=== PATIENT | female | born 1950 | race Caucasian/White ===

== ENCOUNTER 2018-09-23 00:09 | Observation (INO) | payer BC ==
[2018-09-23] MEDS ORDERED: METHYLPREDNISOLONE PF 125MG/VIAL IVP ONE (00:18)
[2018-09-23] MEDS ORDERED: LEVALBUTEROL HCL 1.25 MG/3 ML INH ONE (00:18)
[2018-09-23] MEDS ORDERED: IPRATROPIUM BR 0.02% NEB (0.5MG) INH ONE (00:19)
--- NOTE | 2018-09-23 00:24 | Emergency Department Record ---
History of Present Illness - General Chief Complaint: Shortness of breath Stated Complaint: SOB Time Seen by Provider: 09/23/18 00:18 Source: Patient Mode of Arrival: Wheelchair Limitations: No limitations - History of Present Illness Initial Comments: 68 yo female presents to ED for evaluation of difficulty in breathing symptoms for the past several days, progressively worsening. Patient reports previous diagnosis of COPD, reports non-productive cough symptoms and subjective fevers. Patient reports history of lymphedema, denies history of CHF. 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 MD Complaint: Shortness of breath -: Days(s) Severity: Moderate Consistency: Constant Improves With: Nothing Worsens With: Nothing Known History Of: COPD Context: Recent URI Associated Symptoms: Denies other symptoms Treatments Prior to Arrival: None - Related Data Home Oxygen Therapy: No Home Medications Medication Instructions Recorded Confirmed Last Taken Bumetanide 1 tab PO BID 09/23/18 09/23/18 09/23/18 Bupropion HCl [Wellbutrin Xl] 300 mg PO DAILY 09/23/18 09/23/18 09/23/18 Carvedilol 1 tab PO DAILY 09/23/18 09/23/18 09/23/18 Levothyroxine Sodium [Synthroid] 150 mcg PO DAILY 09/23/18 09/23/18 09/23/18 Rivaroxaban [Xarelto] 1 tab PO DAILY 09/23/18 09/23/18 09/23/18 Allergies Allergy/AdvReac Type Severity Reaction Status Date / Time Carbapenems Allergy Unknown RASH Verified 09/23/18 00:24 Cephalosporins Allergy Unknown RASH Verified 09/23/18 00:24 Penicillins Allergy Unknown RASH Verified 09/23/18 00:24 albuterol Allergy SWELLING Verified 09/23/18 06:28 OF THE LIPS clindamycin Allergy RASH Verified 09/23/18 00:23 (Continued): Allergy Unknown RASH Uncoded 09/23/18 00:23 Allergies: Allergy Unknown RASH Uncoded 09/23/18 00:23 Review of Systems Constitutional: Denies: Chills, Fever, Malaise, Night sweats Eyes: Denies: Eye discharge, Eye pain ENT: Denies: Congestion, Ear pain, Epistaxis Respiratory: Reports: Cough, Dyspnea Cardiovascular: Reports: Dyspnea on exertion, Edema. Denies: Chest pain, Palpitations Endocrine: Denies: Fatigue, Heat or cold intolerance Gastrointestinal: Denies: Abdominal pain, Nausea, Vomiting Genitourinary: Denies: Incontinence, Retention Musculoskeletal: Denies: Arthralgia, Back pain Skin: Denies: Bruising, Change in color Neurological: Denies: Abnormal gait, Confusion, Headache, Seizure Psychiatric: Denies: Anxiety Hematological/Lymphatic: Reports: Blood Clots, Easy bleeding, Easy bruising. Denies: Anemia Physical Exam - General General Appearance: Alert, Oriented x3, Cooperative, Moderate distress Limitations: No limitations - Head Head exam: Atraumatic, Normocephalic, Normal inspection Head exam detail: negative: Abrasion, Contusion, Randolph's sign, General tenderness, Hematoma, Laceration - Eye Eye exam: Normal appearance. negative: Conjunctival injection, Periorbital swelling, Periorbital tenderness, Scleral icterus - ENT Ear exam: negative: Auricular hematoma, Auricular trauma Nasal Exam: negative: Active bleeding, Discharge, Dried blood, Foreign body Mouth exam: negative: Drooling, Laceration, Muffled voice, Tongue elevation - Neck Neck exam: Normal inspection. negative: Meningismus, Tenderness - Respiratory Respiratory exam: Decreased breath sounds, Respiratory distress. negative: Rales, Rhonchi, Stridor - Cardiovascular Cardiovascular Exam: Regular rate, Normal rhythm, Normal heart sounds - GI/Abdominal GI/Abdominal exam: Soft. negative: Rebound, Rigid, Tenderness - Rectal Rectal exam: Deferred - exam: Deferred - Extremities Extremities exam: Pedal edema - Back Back exam: Denies: CVA tenderness (R), CVA tenderness (L) - Neurological Neurological exam: Alert, Oriented X3 - Psychiatric Psychiatric exam: Normal affect, Normal mood - Skin Skin exam: Normal color. negative: Abrasion Type of lesion: negative: abrasion Course - Reevaluation(s) Reevaluation #1: 09/23/18 00:31 EKG: NSR 88 Normal axis, normal intervals Nonspecific ST-T wave changes Reevaluation #2: 09/23/18 00:43 Laboratory studies were reviewed and appear grossly unremarkable for an acute process. CXR: Diffuse cayetano-hilar interstitial processes Patient was reassessed following Xopenex treatment, 96% vial 3 L NC. Rocephin/Zithromax as directed and admit for further evaluation. Reevaluation #3: 09/23/18 06:47 Case was discussed with Mirna Yates NP, will accept admission at this time. Medical Decision Making - Lab Data Result diagrams: 09/23/18 00:20 09/23/18 00:20 Disposition Disposition: Admit Clinical Impression: COPD exacerbation, Hypoxia, Lymphedema of both lower extremities Disposition: Still a Patient at [facility] Decision to Admit: Admit from ER Decision to Admit Date: 09/23/18 Decision to Admit Time: 01:02 Condition: (2) Stable Time of Disposition: 01:02 Quality - Quality Measures Quality Measures: N/A - Blood Pressure Screening Does Patient Have Any of the Following: Active Dx of HTN Blood Pressure Classification: Hypertensive Reading Systolic Measurement: 175 Diastolic Measurement: 99 Screening for High Blood Pressure: Patient Exclusion, Hx of HTN [[id number]]
[2018-09-23 00:28] LABS: BASO % 0.4 % (0-6); EOS % 0.2 % (0-6); HEMATOCRIT 44.6 % (35.0-47.0); HEMOGLOBIN 14.3 gm/dl (11.6-16.0); MEAN CELL VOLUME 99.3 fl (81-97); MEAN CORPUSCULAR HEMOGLOBIN 31.8 pg (27-33); MEAN CORPUSCULAR HGB CONC 32.1 g/dl (32-36); MEAN PLATELET VOLUME 9.8 fl (7.4-10.4); MONO % 9.4 % (0-9); PLATELET COUNT 247 K/uL (130-400); RED BLOOD COUNT 4.49 M/uL (3.80-5.40); RED CELL DISTRIBUTION WIDTH 13.6 % (11.5-14.5); WHITE BLOOD COUNT W/O DIFF 10.5 K/uL (4.2-12.2)
[2018-09-23 00:37] LABS: BLOOD UREA NITROGEN 16 mg/dL (8-23); CREATININE 0.8 mg/dL (0.5-0.9); EST GLOMERULAR FILTRATION RATE > 60 mL/min; TOTAL PROTEIN 7.4 g/dL (6.6-8.7)
[2018-09-23 00:39] LABS: GLUCOSE,RANDOM 143 mg/dL (74-109)
[2018-09-23 00:42] LABS: ALB/GLOB RATIO 1.1 (1.1-1.8); ALBUMIN 3.8 g/dL (4.0-5.0); ALKALINE PHOSPHATASE 80 U/L (35-104); ALT/SGPT 9 U/L (<33); AST/SGOT 17 U/L (10.0-35.0)
[2018-09-23] MEDS ORDERED: CEFTRIAXONE 1GM/50ML BAG 1 GM/50 ML BAG IVPB ONE (00:58)
[2018-09-23] MEDS: AZITHROMYCIN 500 MG TABLET PO SCH ×2 (01:09→10:44)
[2018-09-23] MEDS ORDERED: ACETAMINOPHEN 500 MG TABLET PO PRN (02:27)
[2018-09-23] MEDS ORDERED: AZITHROMYCIN 500 MG in 0.9 % SODIUM CHLORIDE 250ML 250 ML IVPB SCH (02:27)
[2018-09-23] MEDS: LEVOTHYROXINE SODIUM 150 MCG TABLET PO SCH (06:08)
[2018-09-23] MEDS: LEVALBUTEROL HCL 1.25 MG/3 ML INH SCH ×3 (06:10→22:25)
--- NOTE | 2018-09-23 09:54 | History & Physical ---
History of Present Illness - Date of Service Date of Service for History & Physical: 09/23/18 - History of Present Illness Admitting Diagnosis: COPD exacerbation. Hypoxia History of Present Illness: 68 year old female patient presents to ED for evaluation of productive cough and shortness of breath. Patient states symptoms began last Friday and have p rogressively been worsening over the past 4-5 days. Patient states she has not been sleeping well since then either as a result of the coughing. Patient reports intermittent chills and sweating but has not taken her temperature. Past medical history includes COPD, DVT/PE (on Xarelto), lymphedema, depression, sleep apnea, and hypothyroidism. PCP: Dr. Jonas Chakraborty ED Course: WBC 10.5, CMP unremarkable, Trop neg, BNP 1258 EKG: NSR 88, normal axis, normal intervals, nonspecific ST-T wave changes CXR: ground glass opacities noted bilaterally Xopenex nmt due to albuterol allergy Supplemental oxygen at 3L to keep oxygen saturation > 92% Started Rocephin and Zithromax 09/23/18: Patient A&O x 4, sitting up on edge of bed. Mild conversational dyspnea noted, patient remains on 3-4L oxygen via NC. Patient reports symptoms have improved since arrival to ED last night. Travel Screening - Travel/Exposure Within Last 30 Days Have you traveled within the last 30 days?: No - Travel/Exposure Within Last Year Have you traveled outside the [place] in the last year?: No - Additonal Travel Details Have you been exposed to anyone with a communicable illness?: No - Travel Symptoms Symptom Screening: Weakness Review of Systems Reviewed: No additional complaints except as noted below Constitutional: Denies: Chills, Fever, Malaise, Night sweats Eyes: Denies: Eye discharge, Eye pain ENT: Denies: Congestion, Ear pain, Epistaxis Respiratory: Reports: Cough, Dyspnea Cardiovascular: Reports: Dyspnea on exertion, Edema. Denies: Chest pain, Palpitations Endocrine: Denies: Fatigue, Heat or cold intolerance Gastrointestinal: Denies: Abdominal pain, Nausea, Vomiting Genitourinary: Denies: Incontinence, Retention Musculoskeletal: Denies: Arthralgia, Back pain Skin: Denies: Bruising, Change in color Neurological: Denies: Abnormal gait, Confusion, Headache, Seizure Psychiatric: Denies: Anxiety Hematological/Lymphatic: Reports: Blood Clots, Easy bleeding, Easy bruising. Denies: Anemia Past Medical History - SOCIAL HISTORY Smoking Status: Current every day smoker Alcohol Use: None Drug Use: None - RESPIRATORY Hx Respiratory Disorders: Yes Hx COPD: Yes Hx Pneumonia: Yes Hx Pulmonary Embolism: Yes Hx Sleep Apnea: Yes - CARDIOVASCULAR Hx Cardio Disorders: Yes Hx Deep Vein Thrombosis: Yes Hx Hypertension: Yes - NEURO Hx Neuro Disorders: No - GI Hx GI Disorders: No Hx Wt Loss/Wt Gain: Yes - Hx Genitourinary Disorders: No - ENDOCRINE Hx Endocrine Disorders: No - MUSCULOSKELETAL Hx Musculoskeletal Disorders: Yes Hx Arthritis: Yes - PSYCH Hx Psych Problems: Yes Hx Anxiety: Yes Hx Depression: Yes - HEMATOLOGY/ONCOLOGY Hx Hematology/Oncology Disorders: No Family Medical History Any Significant Family History?: Yes Hx Diabetes: Father, Mother Hx Heart Disease: Father, Mother H&P Meds/Allergies - Allergies Allergies: Allergies Allergy/AdvReac Type Severity Reaction Status Date / Time Carbapenems Allergy Unknown RASH Verified 09/23/18 00:24 Cephalosporins Allergy Unknown RASH Verified 09/23/18 00:24 Penicillins Allergy Unknown RASH Verified 09/23/18 00:24 albuterol Allergy SWELLING Verified 09/23/18 06:28 OF THE LIPS clindamycin Allergy RASH Verified 09/23/18 00:23 (Continued): Allergy Unknown RASH Uncoded 09/23/18 00:23 Allergies: Allergy Unknown RASH Uncoded 09/23/18 00:23 - Home Medications Home Medications Medication Instructions Recorded Confirmed Last Taken Bumetanide 2 mg PO BID 09/23/18 09/23/18 09/23/18 Bupropion HCl [Wellbutrin Xl] 300 mg PO DAILY 09/23/18 09/23/18 09/23/18 Carvedilol 12.5 mg PO BID 09/23/18 09/23/18 09/23/18 Levothyroxine Sodium [Synthroid] 150 mcg PO DAILY 09/23/18 09/23/18 09/23/18 Rivaroxaban [Xarelto] 15 mg PO DAILY 09/23/18 09/23/18 09/23/18 - Active Medications Active Medications: Current Medications Acetaminophen (Tylenol 500mg Tab) 1,000 mg PO Q6H PRN PRN Reason: PAIN - MILD(1-4)/FEVER Azithromycin (Zithromax) 500 mg PO DAILY DIAZ Last Admin: 09/23/18 01:09 Dose: 500 mg Documented by: Bumetanide (Bumex) 2 mg PO BIDDIUR [facility] Bupropion HCl (Wellbutrin Sr) 300 mg PO DAILY [facility] Carvedilol (Coreg) 12.5 mg PO BID [facility] CEFTRIAXONE 1GM/50ML BAG (Ceftriaxone 1 Gm-D5w Bag) 1 gm in 50 mls @ 100 mls/hr IVPB Q24H [facility] Levalbuterol HCl (Xopenex (1.25mg/3ml)) 1.25 mg INH RESP.Q8H [facility] Last Admin: 09/23/18 06:10 Dose: 1.25 mg Documented by: Levalbuterol HCl (Xopenex (1.25mg/3ml)) 1.25 mg INH RESP.Q2H PRN PRN Reason: DIFFICULTY IN BREATHING Levothyroxine Sodium (Synthroid) 150 mcg PO DAILYAC [facility] Last Admin: 09/23/18 06:08 Dose: 150 mcg Documented by: Methylprednisolone Sodium Succinate (Solu-Medrol) 125 mg IVP DAILY [facility] Rivaroxaban (Xarelto) 15 mg PO DAILY [facility] Physical Exam - Vital Signs Vital Signs: Vital Signs - Last 24 Hrs Temp Pulse Pulse Resp BP Pulse Ox 09/23/18 09:00 80 20 09/23/18 06:10 78 20 93 L 09/23/18 02:46 90 16 09/23/18 02:28 92 L 09/23/18 02:27 98.2 F 90 18 175/99 84 L 09/23/18 02:03 89 158/95 92 L 09/23/18 01:16 89 154/77 94 L 09/23/18 00:31 88 136/89 09/23/18 00:24 111/72 09/23/18 00:21 90 24 09/23/18 00:10 99.1 F 101 H 24 88 L - General General Appearance: Alert, Oriented x3, Cooperative, No acute distress Limitations: No limitations - Head Head exam: Atraumatic, Normocephalic, Normal inspection Head exam detail: negative: Abrasion, Contusion, Randolph's sign, General tenderness, Hematoma, Laceration - Eye Eye exam: Normal appearance. negative: Conjunctival injection, Periorbital swelling, Periorbital tenderness, Scleral icterus - ENT ENT exam: Mucous membranes moist Ear exam: Normal external inspection. negative: Auricular hematoma, Auricular trauma Nasal Exam: Normal inspection. negative: Active bleeding, Discharge, Dried blood, Foreign body Mouth exam: Normal external inspection. negative: Drooling, Laceration, Muffled voice, Tongue elevation - Neck Neck exam: Normal inspection. negative: Meningismus, Tenderness - Respiratory Respiratory exam: Decreased breath sounds, Wheezes (inspiratory in upper lobes). negative: Rales, Rhonchi, Stridor - Cardiovascular Cardiovascular Exam: Regular rate, Normal rhythm, Normal heart sounds Peripheral Pulses: 2+: Radial (R), Radial (L) - GI/Abdominal GI/Abdominal exam: Soft, Normal bowel sounds. negative: Rebound, Rigid, Tenderness - Rectal Rectal exam: Deferred - exam: Deferred - Extremities Extremities exam: Pedal edema (chronic lymphedema with skin changes noted) - Back Back exam: Denies: CVA tenderness (R), CVA tenderness (L) - Neurological Neurological exam: Alert, Oriented X3 - Psychiatric Psychiatric exam: Normal affect, Normal mood - Skin Skin exam: Normal color. negative: Abrasion Type of lesion: negative: abrasion Results - Labs Result Diagrams: 09/23/18 00:20 09/23/18 00:20 Labs Last 24 Hours: Laboratory Results - last 24 hr 09/23/18 09/23/18 00:20 00:20 WBC 10.5 RBC 4.49 Hgb 14.3 Hct 44.6 MCV 99.3 H MCH 31.8 MCHC 32.1 RDW 13.6 Plt Count 247 MPV 9.8 Gran % 80.0 Lymphocytes % 10.0 L Monocytes % 9.4 H Eosinophils % 0.2 Basophils % 0.4 Absolute Neutrophils 8.40 Sodium 135 L Potassium 4.5 Chloride 94 L Carbon Dioxide 28.0 Anion Gap 13.0 BUN 16 Creatinine 0.8 Estimated GFR > 60 Random Glucose 143 H Calcium 9.4 Total Bilirubin 1.40 H AST 17 ALT 9 Alkaline Phosphatase 80 Troponin T < 0.010 NT-Pro-B Natriuret Pep 1258.00 H Total Protein 7.4 Albumin 3.8 L Globulin 3.6 Albumin/Globulin Ratio 1.1 - Imaging and Cardiology Chest x-ray Status: Report reviewed VTE H&P Assessment - Risk for VTE Risk for VTE: Yes Risk Level: Moderate Risk Assessment Date: 09/23/18 Risk Assessment Time: 10:49 VTE Orders Placed or Will Be Placed: No VTE Reason for No Prophylaxis: Contraindicated (continue current xarelto dose) Plan - Detailed Diagnosis and Plan (1) COPD exacerbation Current Visit: Yes Status: Acute Base Code: J44.1 - CHRONIC OBSTRUCTIVE PULMONARY DISEASE W (ACUTE) EXACERBATION Comment: 09/23/18: -Patient presented to ED with SOB, coughing, hypoxia x 4-5 days -CXR: ground glass opacities bilaterally -Xopenex due to albuterol allergy, improved dyspnea -WBC 10.5, CMP unremarkable, trop neg, BNP 1258 -hypoxia requiring supplmental oxygen -Rocephin and zithromax started in ED (2) Hypoxia Current Visit: Yes Status: Acute Base Code: R09.02 - HYPOXEMIA Comment: 09/23/18: -Pulse ox 84% on RA in ED -Currently on 3-4L oxygen via NC -Continue supplemental oxygen to keep pulse ox >90% (3) Dyspnea Current Visit: Yes Status: Acute Base Code: R06.00 - DYSPNEA, UNSPECIFIED Comment: 09/23/18: -Dyspnea reported with minimal exertion -BNP 1258, patient reports no history of CHF, no recent echo -Spoke with PCP office, no documentation of CHF, recent ECHO, or cardiology despite being on diuretics and beta miguel a -ECHO ordered, consider cardiology consult pending results (4) Lymphedema of both lower extremities Current Visit: Yes Status: Acute Base Code: I89.0 - LYMPHEDEMA, NOT ELSEWHERE CLASSIFIED Comment: 09/23/18: -Chronic lymphedema of bilateral lower extremities with skin changes noted -Encouraged keeping legs elevated as tolerated (5) DVT prophylaxis Current Visit: Yes Status: Acute Base Code: Z29.9 - ENCOUNTER FOR PROPHYLACTIC MEASURES, UNSPECIFIED Comment: 09/23/18: -High risk due to age, hospitalization, and illness -Continue home dose of Xarelto 15mg daily (6) Full code status Current Visit: Yes Status: Acute Base Code: Z78.9 - OTHER SPECIFIED HEALTH STATUS Comment: 09/23/18: -Full code this admission
[2018-09-23] MEDS: CARVEDILOL 12.5 MG TABLET PO SCH ×2 (10:44→21:45)
[2018-09-23] MEDS: BUPROPION HCL 150 MG TAB.SR.12H PO SCH (10:44)
[2018-09-23] MEDS: BUMETANIDE 1 MG TABLET PO SCH ×2 (10:44→16:32)
[2018-09-23] MEDS: RIVAROXABAN 15 MG TABLET PO SCH (10:45)
[2018-09-23] MEDS: METHYLPREDNISOLONE PF 125MG/VIAL IVP SCH (10:45)
[2018-09-23] MEDS: GUAIFENESIN 600 MG TABCR PO SCH ×2 (12:45→21:46)
--- NOTE | 2018-09-23 19:39 | RADIOLOGY REPORT ---
STUDY: Portable chest. CLINICAL HISTORY: Shortness of breath beginning 3 days ago. Productive cough. COPD history. TECHNIQUE: Single mobile upright view of the chest is obtained. COMPARISON: Two view chest radiographic examination dated 04/04/2008. FINDINGS: There are mixed reticulonodular and ground-glass opacities scattered in each lung appearing slightly more pronounced compared to the prior examination. No costophrenic angle blunting or pneumothorax. The heart is at the upper limits of normal in size. Evaluation of the vasculature is limited. There are degenerative changes scattered within the visualized spine associated with mild dextroconvex scoliosis. IMPRESSION: 1. Mixed reticulonodular and ground-glass opacities scattered in each lung appearing slightly more pronounced than on a 2009 examination. Given a relatively similar appearance on prior examination, this could relate to chronic interstitial change with possible superimposed edema, atelectasis, or infiltrate. The possibility of all these opacities being acute cannot be excluded. Comparison to more recent prior examinations may be of benefit. 2. Tortuous atherosclerotic thoracic aorta. MTDD
[2018-09-23] MEDS: NYSTATIN 15 GM TUBE TOP SCH (21:45)
[2018-09-23] MEDS: LEVALBUTEROL HCL 1.25 MG/3 ML INH PRN ×2 (22:07→22:26)
[2018-09-24] MEDS ORDERED: CEFTRIAXONE 1GM/50ML BAG 1 GM/50 ML BAG IVPB SCH
[2018-09-24] MEDS: LEVALBUTEROL HCL 1.25 MG/3 ML INH SCH ×2 (05:03→14:03)
[2018-09-24] MEDS: LEVOTHYROXINE SODIUM 150 MCG TABLET PO SCH (06:10)
[2018-09-24 06:50] LABS: ABSOLUTE NEUTROPHIL COUNT 9.32; BASO % 0.1 % (0-6); HEMATOCRIT 43.5 % (35.0-47.0); HEMOGLOBIN 13.9 gm/dl (11.6-16.0); LYMPH % 7.1 % (16-45); MEAN CELL VOLUME 98.6 fl (81-97); MEAN CORPUSCULAR HEMOGLOBIN 31.5 pg (27-33); MEAN PLATELET VOLUME 10.2 fl (7.4-10.4); PLATELET COUNT 271 K/uL (130-400); RED BLOOD COUNT 4.41 M/uL (3.80-5.40); WHITE BLOOD COUNT W/O DIFF 10.5 K/uL (4.2-12.2)
[2018-09-24 07:10] LABS: BLOOD UREA NITROGEN 26 mg/dL (8-23); CREATININE 0.7 mg/dL (0.5-0.9); EST GLOMERULAR FILTRATION RATE > 60 mL/min; GLUCOSE,RANDOM 193 mg/dL (74-109)
[2018-09-24] MEDS: BUMETANIDE 1 MG TABLET PO SCH (09:37)
[2018-09-24] MEDS: BUPROPION HCL 150 MG TAB.SR.12H PO SCH (09:37)
[2018-09-24] MEDS: GUAIFENESIN 600 MG TABCR PO SCH (09:37)
[2018-09-24] MEDS: RIVAROXABAN 15 MG TABLET PO SCH (09:37)
[2018-09-24] MEDS: METHYLPREDNISOLONE PF 125MG/VIAL IVP SCH (09:37)
[2018-09-24] MEDS: AZITHROMYCIN 500 MG TABLET PO SCH (09:37)
[2018-09-24] MEDS: CARVEDILOL 12.5 MG TABLET PO SCH (09:37)
[2018-09-24] MEDS: NYSTATIN 15 GM TUBE TOP SCH (09:37)
[2018-09-24] MEDS ORDERED: BREO (FLUTICASONE/VILANTEROL) 100MCG/25MCG INHALER INH SCH (10:15)
[2018-09-24] MEDS ORDERED: BREO (FLUTICASONE/VILANTEROL) 200MCG/25MCG INHALER INH SCH (10:30)
--- NOTE | 2018-09-24 11:43 | Discharge Summary ---
Providers Discharge Summary Date: 09/24/18 Date of admission: 09/23/18 01:40 Expected Date of Discharge: 09/24/18 Attending physician: LEONOR CASTANO Primary care physician: RAYRAY CHAKRABORTY D.O. Consults: Consult Orders 09/24/18 09:58 Consult - Cardiology NOW Consulting Provider: Ashley Caldera Physician Instructions: Reason For Exam: ANNE, edema, and increased BNP. 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 Physical Exam - Vital Signs Vital Signs: Vital Signs - Last 24 Hrs Temp Pulse Pulse Resp BP Pulse Ox 09/24/18 10:46 79 18 94 L 09/24/18 09:09 87 18 93 L 09/24/18 05:03 58 L 16 97 09/24/18 03:46 97.1 F L 61 20 158/91 99 09/23/18 22:08 69 16 97 09/23/18 20:32 76 09/23/18 20:00 97.1 F L 76 18 134/90 97 09/23/18 17:53 98 F 68 16 121/78 97 09/23/18 14:15 68 18 92 L - General General Appearance: Alert, Oriented x3, Cooperative, No acute distress Limitations: No limitations - Head Head exam: Atraumatic, Normocephalic, Normal inspection Head exam detail: negative: Abrasion, Contusion, Randolph's sign, General tenderness, Hematoma, Laceration - Eye Eye exam: Normal appearance. negative: Conjunctival injection, Periorbital swelling, Periorbital tenderness, Scleral icterus - ENT ENT exam: Mucous membranes moist Ear exam: Normal external inspection. negative: Auricular hematoma, Auricular trauma Nasal Exam: Normal inspection. negative: Active bleeding, Discharge, Dried blood, Foreign body Mouth exam: Normal external inspection. negative: Drooling, Laceration, Muffled voice, Tongue elevation - Neck Neck exam: Normal inspection. negative: Meningismus, Tenderness - Respiratory Respiratory exam: Decreased breath sounds (bases bilaterally). negative: Rales, Rhonchi, Stridor - Cardiovascular Cardiovascular Exam: Regular rate, Normal rhythm, Normal heart sounds Peripheral Pulses: 2+: Radial (R), Radial (L) - GI/Abdominal GI/Abdominal exam: Soft, Normal bowel sounds. negative: Rebound, Rigid, Tenderness - Rectal Rectal exam: Deferred - exam: Deferred - Extremities Extremities exam: Pedal edema (chronic lymphedema with skin discoloration noted bilaterally) - Back Back exam: Denies: CVA tenderness (R), CVA tenderness (L) - Neurological Neurological exam: Alert, Oriented X3 - Psychiatric Psychiatric exam: Normal affect, Normal mood - Skin Skin exam: Normal color. negative: Abrasion Type of lesion: negative: abrasion Hospitalization - Hospitalization Admission Diagnosis: COPD exacerbation. Hypoxia - Problem List/Discharge Diagnosis (1) COPD exacerbation Current Visit: Yes Status: Acute Base Code: J44.1 - CHRONIC OBSTRUCTIVE PULMONARY DISEASE W (ACUTE) EXACERBATION Comment: 09/24/18: -Patient presented to ED with SOB, coughing, hypoxia x 4-5 days -CXR: ground glass opacities bilaterally -Xopenex due to albuterol allergy, improved dyspnea -WBC 10.5, CMP unremarkable, trop neg, BNP 1258 -hypoxia requiring supplmental oxygen, patient to go home on supplemental oxygen -Rocephin and zithromax started in ED have been continued -DC on Zithromax for 3 additional days -3 more days of Prednisone -Home oxygen -Starting Breo -Pulmonology consult outpatient (2) Hypoxia Current Visit: Yes Status: Acute Base Code: R09.02 - HYPOXEMIA Comment: 09/24/18: -Pulse ox 84% on RA in ED -Currently on 3-4L oxygen via NC -Continue supplemental oxygen to keep pulse ox >90% -DC home on supplmental oxygen (3) Dyspnea Current Visit: Yes Status: Acute Base Code: R06.00 - DYSPNEA, UNSPECIFIED Comment: 09/24/18: -Dyspnea reported with minimal exertion -BNP 1258, patient reports no history of CHF, no recent echo -Spoke with PCP office, no documentation of CHF, recent ECHO, or cardiology despite being on diuretics and beta miguel a -ECHO ordered, EF 55-60%, mild left ventricular hypertrophy -Cardiology consult, no further interventions at this time (4) Lymphedema of both lower extremities Current Visit: Yes Status: Acute Base Code: I89.0 - LYMPHEDEMA, NOT ELSEWHERE CLASSIFIED Comment: 09/24/18: -Chronic lymphedema of bilateral lower extremities with skin changes noted -Encouraged keeping legs elevated as tolerated (5) DVT prophylaxis Current Visit: Yes Status: Acute Base Code: Z29.9 - ENCOUNTER FOR PROPHYLACTIC MEASURES, UNSPECIFIED Comment: 09/24/18: -High risk due to age, hospitalization, and illness -Continue home dose of Xarelto 15mg daily (6) Full code status Current Visit: Yes Status: Acute Base Code: Z78.9 - OTHER SPECIFIED HEALTH STATUS Comment: 09/24/18: -Full code this admission - Hospitalization Course Disposition: Home, Self-Care Hospital Course: 68 year old female patient presents to ED for evaluation of productive cough and shortness of breath. Patient states symptoms began last Friday and have progressively been worsening over the past 4-5 days. Patient states she has not been sleeping well since then either as a result of the coughing. Patient reports intermittent chills and sweating but has not taken her temperature. Past medical history includes COPD, DVT/PE (on Xarelto), lymphedema, depression, sleep apnea, and hypothyroidism. PCP: Dr. Rayray Chakraborty ED Course: WBC 10.5, CMP unremarkable, Trop neg, BNP 1258 EKG: NSR 88, normal axis, normal intervals, nonspecific ST-T wave changes CXR: ground glass opacities noted bilaterally Xopenex nmt due to albuterol allergy Supplemental oxygen at 3L to keep oxygen saturation > 92% Started Rocephin and Zithromax 09/23/18: Patient A&O x 4, sitting up on edge of bed. Mild conversational dyspnea noted, patient remains on 3-4L oxygen via NC. Patient reports symptoms have improved since arrival to ED last night. 09/24/18: Patient A&O x 4, sitting on edge of bed. Patient reports improved dyspnea and coughing. Patient will require oxygen at dc, as she failed oxygen qualifier. Patient started on Breo daily and set-up with pulmonology outpatient for further COPD management. Patient to dc with 3 additional days of zithromax and prednisone. Cardiology consult due to elevated BNP and review ECHO results. 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 09/23/18 11:26 Echo W/CF & Cardiac Doppler NOW Abnormal Labs: Abnormal Lab Results 09/23/18 09/23/18 09/24/18 Range/Units 00:20 00:20 06:35 MCV 99.3 H 98.6 H (81-97) fl Neutrophils % 89.0 H (47-80) % Lymphocytes % 10.0 L 7.1 L (16-45) % Monocytes % 9.4 H (0-9) % Lymphocytes 8.0 L (16-45) % Sodium 135 L (136-145) mmol/L Chloride 94 L (98-107) mmol/L BUN (8-23) mg/dL Random Glucose 143 H (74-109) mg/dL Total Bilirubin 1.40 H (0.2-1.0) mg/dL NT-Pro-B Natriuret Pep 1258.00 H (<125) pg/mL Albumin 3.8 L (4.0-5.0) g/dL 09/24/18 Range/Units 06:35 MCV (81-97) fl Neutrophils % (47-80) % Lymphocytes % (16-45) % Monocytes % (0-9) % Lymphocytes (16-45) % Sodium (136-145) mmol/L Chloride 96 L (98-107) mmol/L BUN 26 H (8-23) mg/dL Random Glucose 193 H (74-109) mg/dL Total Bilirubin (0.2-1.0) mg/dL NT-Pro-B Natriuret Pep (<125) pg/mL Albumin (4.0-5.0) g/dL Condition at Discharge: (2) Stable Discharge Medications - Discharge Medications Prescriptions: Fluticasone/Vilanterol 200/25 [Breo Ellipta 200-25 Mcg INH] 1 puff INH DAILY #1 inhaler Guaifenesin [Mucinex] 600 mg PO BID 10 Days #20 tabcr Prednisone [Prednisone 20Mg] 40 mg PO DAILY #6 tab Azithromycin [Zithromax] 500 mg PO DAILY #3 tablet Home Medications: Ambulatory Orders Bumetanide 2 mg PO BID 09/23/18 [Last Taken 09/23/18] Bupropion HCl [Wellbutrin Xl] 300 mg PO DAILY 09/23/18 [Last Taken 09/23/18] Carvedilol 12.5 mg PO BID 09/23/18 [Last Taken 09/23/18] Levothyroxine Sodium [Synthroid] 150 mcg PO DAILY 09/23/18 [Last Taken 09/23/18] Rivaroxaban [Xarelto] 15 mg PO DAILY 09/23/18 [Last Taken 09/23/18] Azithromycin [Zithromax] 500 mg PO DAILY #3 tablet 09/24/18 [Last Taken Unknown] Fluticasone/Vilanterol 200/25 [Breo Ellipta 200-25 Mcg INH] 1 puff INH DAILY #1 inhaler 09/24/18 [Last Taken Unknown] Guaifenesin [Mucinex] 600 mg PO BID 10 Days #20 tabcr 09/24/18 [Last Taken Unknown] Nystatin 5 gm TOP BID cream 09/24/18 [Last Taken Unknown] Prednisone [Prednisone 20Mg] 40 mg PO DAILY #6 tab 09/24/18 [Last Taken Unknown] Discharge Plan - Discharge Instructions Activity at Discharge: Increase Activity as Tolerated Diet at Discharge: Advance to Usual Diet Additional Instructions: -Start the Prednisone (steroid) and Zithromax (antibiotic) tomorrow, taking them once daily for 3 more days -Begin using the Breo inhaler daily -Continue using Nystatin cream on left thigh -Follow-up with PCP in 10-[address] Tong (Pulmonology) at [facility] on October 26 at 2:00PM. Please arrive 30 minutes early to complete new patient paperwork. Quality Measures - Quality Measures Quality Measures: Advance Directives, Documentation of Current Medications in Medical Record, Elder Maltreatment Screen and Follow-Up Plan, Screening for High Blood Pressure and F/U Documented - Current Medications Quality Measure: Measure #130: Documentation of Current Medications Documentation of Current Medications: <Current Medications Documented/Reviewed> [T6948] - Blood Pressure Screening Quality Measure: Screening for High Blood Pressure and Follow-Up Documented Does Patient Have Any of the Following: Active Dx of HTN Blood Pressure Classification: Hypertensive Reading Systolic Measurement: 142 Diastolic Measurement: 91 Screening for High Blood Pressure: Patient Exclusion, Hx of HTN [G9744] - Advance Directives Quality Measure: Measure #47: Care Plan Advance Directives Established: Yes Advance Directives Information Provided To Patient: No Advance Directives on File: No Living Will: No Power of Trolley Worker: No Advance Care Planning: <Care Plan/Decision Maker Documented; Discussed & Documented> [0208F] - Elder Abuse Suspicion Index Screening: Elder Abuse Suspicion Index Screening Rely on people for bathing, dressing, shopping, banking, etc: No Prevented from getting food, clothes, medication, etc: No Made to feel shamed or threatened by someone: No Forced to sign papers or use money against will: No Feel afraid, touched in ways not wanted or hurt physically: No Poor eye contact, withdrawn, malnourished, cuts or bruises: No Screening Result: Negative result EASI Reference Information: Maria G WHITTAKER, Kylah C, Sukhdev Salvador, Kathie Cotter.Development and validation of a tool to assist physicians identification of elder abuse: The Elder Abuse Suspicion Index (EASI ). Journal of Elder Abuse and Neglect, 2008; 20 (3): 276-300. - Elder Maltreatment Screen Quality Measures: Elder Maltreatment Screen and Follow-Up Plan Elder Maltreatment Screen: <Negative, No Follow-Up Plan Required> [G8734]
--- NOTE | 2018-09-25 12:32 | Cardiology Consult ---
DATE OF CONSULTATION: 09/24/2018 REASON FOR CONSULTATION: CHF. HISTORY OF PRESENT ILLNESS: This is a very pleasant 68-year-old female with no previous history of underlying coronary artery disease. The patient presented to the emergency department for evaluation of productive cough and shortness of breath. She states symptoms had begun last week and had progressively gotten worse over the past 4-5 days. She denies symptoms of chest pain, lightheadedness, dizziness, or presyncope. She denies symptoms of palpitations. She has chronic bilateral lower extremity edema due to lymphedema. She continues to smoke 3-4 cigarettes daily and has an occasional glass of wine. She does have a family history of coronary artery disease but no premature coronary artery disease. PAST MEDICAL HISTORY: COPD, DVT/pulmonary embolism, lymphedema, depression, sleep apnea, and hypothyroidism. REVIEW OF SYSTEMS: Constitutional: Denies any fever or chills, fatigue, or night sweats. HEENT: Denies any headache, visual changes, hearing changes, congestion, or difficulty swallowing. Respiratory: Positive cough, positive dyspnea. Cardiovascular: Negative chest pain. Negative palpitations. Endocrine: Denies fatigue or heat/cold intolerance. Gastrointestinal: Denies abdominal pain, nausea, or vomiting. Genitourinary: Denies incontinence or dysuria. Musculoskeletal: Denies arthralgia or back pain. Skin: Denies any bruises or lesions. Neurological: Denies any abnormal gait, confusion, or headache. Psychiatric: Denies anxiety. Hematologic/Lymphatics: Positive blood clots. SOCIAL HISTORY: The patient continues to smoke 3-4 cigarettes daily. Alcohol use, occasional wine. No illicit drug use. FAMILY HISTORY: Father had coronary artery disease at late stage in life. ALLERGIES: Listed to CARBAPENEMS, CEPHALOSPORINS, PENICILLIN, ALBUTEROL, CLINDAMYCIN. HOME MEDICATIONS: 1. Bumex 2 mg b.i.d. 2. Wellbutrin 300 mg daily. 3. Carvedilol 12.5 mg b.i.d. 4. Levothyroxine 150 mcg daily. 5. Xarelto 15 mg daily. PHYSICAL EXAMINATION: VITAL SIGNS: Blood pressure 158/91, pulse 61, afebrile, respirations 20, O2 saturation 99%. GENERAL: The patient is alert and oriented x3. Answers questions appropriately. Does not appear to be in any acute distress. HEENT: Normocephalic and atraumatic. Extraocular movements are intact. Pupils are equal and round. NECK: Supple without lymphadenopathy, thyromegaly, or bruit. CARDIOVASCULAR: Regular rate and rhythm. No significant murmur was appreciated. LUNGS: Diffuse wheezing. No crackles noted. ABDOMEN: Soft and nontender. Bowel sounds present in all 4 quadrants. EXTREMITIES: Edematous with lymphedema appearance. LABORATORY DATA: CBC was within normal limits. Sodium 137, potassium 3.7, chloride 96, CO2 29, BUN 26, creatinine 0.7, glucose 193, proBNP 1258, troponin negative x1. EKG demonstrates sinus rhythm at a rate of 88 beats per minute with no acute changes. Echocardiography demonstrated ejection fraction of 55% to 60%, normal diastolic function, mild tricuspid regurgitation, RVSP of 44 mmHg. ASSESSMENT: 1. Dyspnea, chronic obstructive pulmonary disease exacerbation. Agree with current management. The patient's echocardiogram demonstrated preserved LVEF and normal diastolic function. 2. Edema/lymphedema. Would recommend continued diuretics as at home. PLAN: The patient's dyspnea appears to be respiratory in nature. Echocardiography was satisfactory. At this time, no further cardiac evaluation is planned. Discussed plan with Dr. Doyle who agrees with the above. Thank you for the opportunity to participate in this patient's care. SAGRARIO
== END 2018-09-24 15:15 | disposition home or self-care (01) ==
LOC: ER 00:09 → MEDSURG 01:40 → INTOOBSV 01:40
PROVIDERS: ADMIT Internal Medicine; ATTEND Internal Medicine
DX: J44.1 Chronic obstructive pulmonary disease with (acute) exacerbation (principal); R00.2 Palpitations; R06.00 Dyspnea, unspecified; I89.0 Lymphedema, not elsewhere classified; I10 Essential (primary) hypertension; E03.9 Hypothyroidism, unspecified; G47.33 Obstructive sleep apnea (adult) (pediatric); M19.90 Unspecified osteoarthritis, unspecified site; F17.210 Nicotine dependence, cigarettes, uncomplicated; Z86.718 Personal history of other venous thrombosis and embolism; Z79.01 Long term (current) use of anticoagulants
CPT/HCPCS: 99285 ×2; 96365; 96375; 85025; 80048; 80053; 84484; 85027; 83880; 71045; 94640 ×4; 94761; 93005; 93010; 94760; 93306; G0378 ×2; J3490 ×2; J0696; J2930

== ENCOUNTER 2018-10-11 12:12 | Observation (INO) | payer BC ==
[2018-10-11] MEDS ORDERED: LEVALBUTEROL HCL 1.25 MG/3 ML INH ONE (12:55)
--- NOTE | 2018-10-11 12:58 | Emergency Department Record ---
History of Present Illness - General Chief Complaint: Cough Stated Complaint: COUGHING Time Seen by Provider: 10/11/18 12:42 Source: Patient, Family Mode of Arrival: Ambulatory Limitations: No limitations - History of Present Illness Initial Comments: The patient is here due to a persistent cough with SOB for about a month. She was recently admitted to the hospital here for pneumonia and was discharged about 2 weeks ago. The patient did take all of her Abx's and did feel improved for a time but last week the coughing and SOB returned. The patient denies any CP or fevers and did recently stop taking her diuretic due to having no energy to make it to the bathroom. Complaint: Cough Onset/Timin -: Month(s) - Related Data Previous Rx's Medication Instructions Recorded Fluticasone/Vilanterol 200/25 1 puff INH DAILY #1 inhaler 09/24/18 [Breo Ellipta 200-25 Mcg INH] Guaifenesin [Mucinex] 600 mg PO BID 10 Days #20 tabcr 09/24/18 Nystatin 5 gm TOP BID cream 09/24/18 Allergies Allergy/AdvReac Type Severity Reaction Status Date / Time Carbapenems Allergy Unknown RASH Verified 09/23/18 00:24 Cephalosporins Allergy Unknown RASH Verified 09/23/18 00:24 Penicillins Allergy Unknown RASH Verified 09/23/18 00:24 albuterol Allergy SWELLING Verified 09/23/18 06:28 OF THE LIPS clindamycin Allergy RASH Verified 09/23/18 00:23 (Continued): Allergy Unknown RASH Uncoded 09/23/18 00:23 Allergies: Allergy Unknown RASH Uncoded 09/23/18 00:23 Travel Screening - Travel/Exposure Within Last 30 Days Have you traveled within the last 30 days?: No - Travel Symptoms Symptom Screening: Weakness, Fatigue Review of Systems Constitutional: Denies: Chills, Fever Eyes: Denies: Eye discharge ENT: Reports: Congestion Respiratory: Reports: Cough, Dyspnea. Denies: Hemoptysis Cardiovascular: Denies: Chest pain Endocrine: Reports: Fatigue Gastrointestinal: Denies: Nausea Genitourinary: Denies: Dysuria Musculoskeletal: Denies: Arthralgia Skin: Denies: Bruising Past Medical History - SOCIAL HISTORY Smoking Status: Current every day smoker - RESPIRATORY Hx Respiratory Disorders: Yes Hx COPD: Yes Hx Pneumonia: Yes Hx Pulmonary Embolism: Yes Hx Sleep Apnea: Yes - CARDIOVASCULAR Hx Cardio Disorders: Yes Hx Deep Vein Thrombosis: Yes Hx Hypertension: Yes - NEURO Hx Neuro Disorders: No - GI Hx GI Disorders: No Hx Wt Loss/Wt Gain: Yes - Hx Genitourinary Disorders: No - ENDOCRINE Hx Endocrine Disorders: No - MUSCULOSKELETAL Hx Musculoskeletal Disorders: Yes Hx Arthritis: Yes - PSYCH Hx Psych Problems: Yes Hx Anxiety: Yes Hx Depression: Yes - HEMATOLOGY/ONCOLOGY Hx Hematology/Oncology Disorders: No Family Medical History Any Significant Family History?: Yes Hx Diabetes: Father, Mother Hx Heart Disease: Father, Mother Physical Exam - General General Appearance: Alert, Oriented x3, Cooperative, No acute distress - Head Head exam: Atraumatic, Normocephalic, Normal inspection - Eye Eye exam: Normal appearance, PERRL - ENT Throat exam: Normal inspection. negative: Tonsillar erythema, Tonsillar exudate - Neck Neck exam: Normal inspection, Full ROM. negative: Tenderness - Respiratory Respiratory exam: Rhonchi. negative: Normal lung sounds bilaterally, Accessory muscle use, Respiratory distress, Stridor, Wheezes - Cardiovascular Cardiovascular Exam: Regular rate, Normal rhythm, Normal heart sounds - GI/Abdominal GI/Abdominal exam: Soft, Normal bowel sounds. negative: Tenderness - Extremities Extremities exam: Pedal edema (chronic and severe but may be worse recently.). negative: Normal inspection - Neurological Neurological exam: Alert. negative: Motor sensory deficit - Psychiatric Psychiatric exam: negative: Anxious Course Vital Signs 10/11/18 12:19 Temperature 98.7 F Pulse Rate 76 Respiratory 22 Rate Blood Pressure 138/91 Pulse Ox 92 L - Reevaluation(s) Reevaluation #1: The patient is doing better at this time. She is still coughing with deep b reathing but the SOB is improved. On exam she still has very significant Rhonchi. Due to the problems at home and the fact we have a pulmonary doctor here tomorrow I did recommend a short stay hospital admission which the patient agreed to. I also did discuss the case with Dr. Khan and he does accept the patient for admission. 10/11/18 14:48 Medical Decision Making - Data Complexity MDM Data: Labs Ordered and/or Reviewed, X-Ray Ordered and/or Reviewed - Lab Data Result diagrams: 10/11/18 13:28 10/11/18 13:28 - Radiology Data Radiology results: Report reviewed (CXR: Neg for acute changes. Prob. Pulm Fibrosis.) Disposition Disposition: Admit Clinical Impression: COPD exacerbation Disposition: Still a Patient at [facility] Decision to Admit: Admit from ER Decision to Admit Date: 10/11/18 Decision to Admit Time: 14:50 Accepting Physician: Bill Time Discussed w/Accepting Physician: 14:50 Condition: (2) Stable Referrals: [facility] [Provider Group] Forms: Patient Portal Access Time of Disposition: 14:50 Quality - Quality Measures Quality Measures: N/A - Blood Pressure Screening View Details: Yes Does Patient Have Any of the Following: No Blood Pressure Classification: Hypertensive Reading Systolic Measurement: 138 Diastolic Measurement: 91 Screening for High Blood Pressure: < First Hypertensive BP, F/U Documented > [G8950] First Hypertensive Follow-up Interventions: Referral to alternative/primary care provider.
[2018-10-11 13:36] LABS: ABSOLUTE NEUTROPHIL COUNT 4.06; BASO % 0.7 % (0-6); EOS % 5.1 % (0-6); GRAN % 68.5 % (47-80); HEMOGLOBIN 13.3 gm/dl (11.6-16.0); LYMPH % 17.1 % (16-45); MEAN CELL VOLUME 99.3 fl (81-97); MEAN CORPUSCULAR HEMOGLOBIN 31.4 pg (27-33); MEAN CORPUSCULAR HGB CONC 31.7 g/dl (32-36); MEAN PLATELET VOLUME 10.1 fl (7.4-10.4); MONO % 8.6 % (0-9); PLATELET COUNT 227 K/uL (130-400); RED BLOOD COUNT 4.23 M/uL (3.80-5.40); RED CELL DISTRIBUTION WIDTH 13.7 % (11.5-14.5); WHITE BLOOD COUNT W/O DIFF 5.9 K/uL (4.2-12.2)
[2018-10-11 13:44] LABS: BLOOD UREA NITROGEN 14 mg/dL (8-23); CREATININE 0.7 mg/dL (0.5-0.9); EST GLOMERULAR FILTRATION RATE > 60 mL/min
[2018-10-11 13:47] LABS: GLUCOSE,RANDOM 142 mg/dL (74-109); PARTIAL THROMBOPLASTIN TIME 33.8 SECONDS (24.5-39.1); PROTHROMBIN TIME (PATIENT) 10.7 SECONDS (9.5-12.1)
[2018-10-11 13:49] LABS: ALT/SGPT 10 U/L (<33); AST/SGOT 11 U/L (10.0-35.0)
[2018-10-11 13:50] LABS: ALBUMIN 3.5 g/dL (4.0-5.0); ALKALINE PHOSPHATASE 74 U/L (35-104)
[2018-10-11] MEDS ORDERED: METHYLPREDNISOLONE PF 125MG/VIAL IVP ONE (14:02)
[2018-10-11 14:03] LABS: C-REACTIVE PROTEIN 9.6 mg/dL (<0.5)
[2018-10-11] MEDS ORDERED: BUMETANIDE IV 0.25 MG/ML VIAL IVP ONE (14:48)
[2018-10-11] MEDS ORDERED: DOXYCYCLINE HYCLATE 100 MG CAPSULE PO ONE (14:48)
[2018-10-11] MEDS ORDERED: ACETAMINOPHEN 325 MG TAB PO PRN (15:49)
[2018-10-11] MEDS: LEVALBUTEROL HCL 1.25 MG/3 ML INH SCH (17:20)
[2018-10-11] MEDS: BENZONATATE 100 MG CAPSULE PO PRN (19:20)
[2018-10-11] MEDS: BUMETANIDE 1 MG TABLET PO SCH ×2 (19:20→21:31)
[2018-10-11] MEDS: CARVEDILOL 12.5 MG TABLET PO SCH (21:37)
[2018-10-11] MEDS: NYSTATIN 15 GM TUBE TOP SCH (21:37)
[2018-10-11] MEDS: GUAIFENESIN 600 MG TABCR PO SCH (21:37)
[2018-10-11] MEDS: DOXYCYCLINE HYCLATE 100 MG CAPSULE PO SCH (21:37)
[2018-10-12] MEDS: LEVALBUTEROL HCL 1.25 MG/3 ML INH SCH ×6 (02:02→23:07)
[2018-10-12] MEDS: LEVOTHYROXINE SODIUM 150 MCG TABLET PO SCH (06:08)
[2018-10-12] MEDS: BENZONATATE 100 MG CAPSULE PO PRN (06:08)
[2018-10-12] MEDS: DOXYCYCLINE HYCLATE 100 MG CAPSULE PO SCH (09:08)
[2018-10-12] MEDS: RIVAROXABAN 15 MG TABLET PO SCH (09:08)
[2018-10-12] MEDS: CARVEDILOL 12.5 MG TABLET PO SCH ×2 (09:09→21:05)
[2018-10-12] MEDS: BUMETANIDE 1 MG TABLET PO SCH ×2 (09:09→16:31)
[2018-10-12] MEDS: PREDNISONE 20 MG TAB PO SCH (09:10)
[2018-10-12] MEDS: BUPROPION HCL 150 MG TAB.SR.12H PO SCH (09:10)
[2018-10-12] MEDS: GUAIFENESIN 600 MG TABCR PO SCH ×2 (09:10→21:05)
--- NOTE | 2018-10-12 09:17 | History & Physical ---
History of Present Illness - Date of Service Date of Service for History & Physical: 10/12/18 - History of Present Illness Admitting Diagnosis: 1. Acute COPD Exacerbation. History of Present Illness: Ms. Mg is a 68 y/o female with 2-3 month history of what was initially thought to be bronchitis and later was diagnosed as pneumonia in late August. The patient was admitted to [facility] and treated for community acquired pneumonia. On that admission she also had cardiac workup with 2D echo showing preserved cardiac ejection fraction. The patient says that she was on Advair but says that she has not been using them. She has been on 3 liters oxygen since her last admission but says that her shortness of breath is not resolving. She has an over 35 year history of intermittent smoking approximately 1/2 pack daily and says that she recently quit. She reports having a pulmonary function test some years ago but cannot recall the results and denies history of fibrotic lung disease. The patient is admitted to the medical floor for respiratory distress with hypoxia. Past medical history includes: DVTs/PE, Lymphedema of bilateral lower extremities, depression and hypothyroidism. PCP: Dr. Jonas Martínez Travel Screening - Travel/Exposure Within Last 30 Days Have you traveled within the last 30 days?: No - Travel/Exposure Within Last Year Have you traveled outside the [place] in the last year?: No - Additonal Travel Details Have you been exposed to anyone with a communicable illness?: No - Travel Symptoms Symptom Screening: None Review of Systems Constitutional: Denies: Chills, Fever Eyes: Denies: Eye discharge ENT: Reports: Congestion Respiratory: Reports: Cough, Dyspnea. Denies: Hemoptysis Cardiovascular: Denies: Chest pain Endocrine: Reports: Fatigue Gastrointestinal: Denies: Nausea Genitourinary: Denies: Dysuria Musculoskeletal: Denies: Arthralgia Skin: Denies: Bruising Past Medical History - SOCIAL HISTORY Smoking Status: Current every day smoker Alcohol Use: Rare Drug Use: None - RESPIRATORY Hx Respiratory Disorders: Yes Hx COPD: Yes Hx Pneumonia: Yes Hx Pulmonary Embolism: Yes Hx Sleep Apnea: Yes (does not use cpap) Hx of CPAP: Yes (does not use) - CARDIOVASCULAR Hx Cardio Disorders: Yes Hx Deep Vein Thrombosis: Yes Hx Hypertension: Yes - NEURO Hx Neuro Disorders: No - GI Hx GI Disorders: No - Hx Genitourinary Disorders: No - ENDOCRINE Hx Endocrine Disorders: No Hx Diabetes: No Hx Thyroid Disease: Yes (hypotyhyroid) - MUSCULOSKELETAL Hx Musculoskeletal Disorders: Yes Hx Arthritis: Yes Comment:: bilateral lle lymphedema - PSYCH Hx Psych Problems: Yes Hx Anxiety: Yes Hx Depression: Yes - HEMATOLOGY/ONCOLOGY Hx Hematology/Oncology Disorders: No Family Medical History Any Significant Family History?: Yes Hx Diabetes: Father, Mother Hx Heart Disease: Father, Mother H&P Meds/Allergies - Allergies Allergies: Allergies Allergy/AdvReac Type Severity Reaction Status Date / Time Carbapenems Allergy Unknown RASH Verified 09/23/18 00:24 Cephalosporins Allergy Unknown RASH Verified 09/23/18 00:24 Penicillins Allergy Unknown RASH Verified 09/23/18 00:24 albuterol Allergy SWELLING Verified 09/23/18 06:28 OF THE LIPS clindamycin Allergy RASH Verified 09/23/18 00:23 (Continued): Allergy Unknown RASH Uncoded 09/23/18 00:23 Allergies: Allergy Unknown RASH Uncoded 09/23/18 00:23 - Home Medications Previous Rx's Medication Instructions Recorded Fluticasone/Vilanterol 200/25 1 puff INH DAILY #1 inhaler 09/24/18 [Breo Ellipta 200-25 Mcg INH] Guaifenesin [Mucinex] 600 mg PO BID 10 Days #20 tabcr 09/24/18 Nystatin 5 gm TOP BID cream 09/24/18 - Active Medications Active Medications: Current Medications Acetaminophen (Tylenol 325mg) 650 mg PO Q6H PRN PRN Reason: PAIN - MILD(1-4)/FEVER Benzonatate (Tessalon) 100 mg PO TID PRN PRN Reason: COUGH Last Admin: 10/12/18 06:08 Dose: 100 mg Documented by: Bumetanide (Bumex) 2 mg PO BID [facility] Last Admin: 10/12/18 09:09 Dose: 2 mg Documented by: Bupropion HCl (Wellbutrin Sr) 300 mg PO DAILY [facility] Last Admin: 10/12/18 09:10 Dose: 300 mg Documented by: Carvedilol (Coreg) 12.5 mg PO BID [facility] Last Admin: 10/12/18 09:09 Dose: 12.5 mg Documented by: Doxycycline Hyclate (Vibramycin) 100 mg PO BID [facility] Last Admin: 10/12/18 09:08 Dose: 100 mg Documented by: Guaifenesin (Mucinex) 600 mg PO BID [facility] Last Admin: 10/12/18 09:10 Dose: 600 mg Documented by: Levalbuterol HCl (Xopenex (1.25mg/3ml)) 1.25 mg INH RESP.Q4H.WA [facility] Last Admin: 10/12/18 07:21 Dose: 1.25 mg Documented by: Levothyroxine Sodium (Synthroid) 150 mcg PO DAILYTHY [facility] Last Admin: 10/12/18 06:08 Dose: 150 mcg Documented by: Nystatin () 5 gm TOP BID [facility] Last Admin: 10/11/18 21:37 Dose: 5 gm Documented by: Prednisone (Prednisone 20mg) 40 mg PO DAILYWM [facility] Last Admin: 10/12/18 09:10 Dose: 40 mg Documented by: Rivaroxaban (Xarelto) 15 mg PO DAILY [facility] Last Admin: 10/12/18 09:08 Dose: 15 mg Documented by: Physical Exam - Vital Signs Vital Signs: Vital Signs - Last 24 Hrs Temp Pulse Pulse Resp BP BP Pulse Ox 10/12/18 07:36 97.5 F L 70 22 124/77 91 L 10/12/18 07:23 67 18 94 L 10/12/18 06:00 98.7 F 85 20 130/68 95 10/12/18 02:04 82 22 94 L 10/12/18 00:00 97.8 F 65 22 135/100 94 L 10/11/18 21:00 20 10/11/18 20:00 97.9 F 90 20 124/75 95 10/11/18 17:20 84 18 96 10/11/18 17:13 77 22 10/11/18 16:07 79 22 146/100 92 L 10/11/18 16:00 98.1 F 77 22 146/107 92 L 10/11/18 13:23 72 20 96 10/11/18 12:19 98.7 F 76 22 138/91 92 L - General General Appearance: Alert, Oriented x3, Cooperative, No acute distress Limitations: No limitations - Head Head exam: Atraumatic, Normocephalic, Normal inspection - Eye Eye exam: Normal appearance, PERRL - ENT Throat exam: Normal inspection. negative: Tonsillar erythema, Tonsillar exudate - Neck Neck exam: Normal inspection, Full ROM. negative: Tenderness - Respiratory Respiratory exam: Rhonchi. negative: Normal lung sounds bilaterally, Accessory muscle use, Respiratory distress, Stridor, Wheezes - Cardiovascular Cardiovascular Exam: Regular rate, Normal rhythm, Normal heart sounds Peripheral Pulses: 3+: Radial (R), Radial (L) - GI/Abdominal GI/Abdominal exam: Soft, Normal bowel sounds. negative: Tenderness - Extremities Extremities exam: Pedal edema (chronic and severe edema bilaterally). negative: Normal inspection - Neurological Neurological exam: Alert, Oriented X3. negative: Motor sensory deficit - Psychiatric Psychiatric exam: negative: Anxious - Skin Skin exam: Erythema (bilateral lower ext) Results - Labs Result Diagrams: 10/11/18 13:28 10/11/18 13:28 Labs Last 24 Hours: Laboratory Results - last 24 hr 10/11/18 10/11/18 10/11/18 13:28 13:28 13:28 WBC 5.9 RBC 4.23 Hgb 13.3 Hct 42.0 MCV 99.3 H MCH 31.4 MCHC 31.7 L RDW 13.7 Plt Count 227 MPV 10.1 Gran % 68.5 Lymphocytes % 17.1 Monocytes % 8.6 Eosinophils % 5.1 Basophils % 0.7 Absolute Neutrophils 4.06 PT 10.7 INR 1.0 APTT 33.8 Sodium 137 Potassium 4.1 Chloride 98 Carbon Dioxide 27.0 Anion Gap 12.0 BUN 14 Creatinine 0.7 Estimated GFR > 60 Random Glucose 142 H Calcium 9.2 Total Bilirubin 0.60 AST 11 ALT 10 Alkaline Phosphatase 74 C-Reactive Protein NT-Pro-B Natriuret Pep 399.40 H Total Protein 7.0 Albumin 3.5 L Globulin 3.5 Albumin/Globulin Ratio 1.0 L Procalcitonin 10/11/18 13:28 WBC RBC Hgb Hct MCV MCH MCHC RDW Plt Count MPV Gran % Lymphocytes % Monocytes % Eosinophils % Basophils % Absolute Neutrophils PT INR APTT Sodium Potassium Chloride Carbon Dioxide Anion Gap BUN Creatinine Estimated GFR Random Glucose Calcium Total Bilirubin AST ALT Alkaline Phosphatase C-Reactive Protein 9.60 H NT-Pro-B Natriuret Pep Total Protein Albumin Globulin Albumin/Globulin Ratio Procalcitonin 0.035 VTE H&P Assessment - Risk for VTE Risk for VTE: Yes Risk Level: High Risk Assessment Date: 10/12/18 Risk Assessment Time: 09:15 VTE Orders Placed or Will Be Placed: Yes Plan - Detailed Diagnosis and Plan (1) Dyspnea Current Visit: No Status: Acute Base Code: R06.00 - DYSPNEA, UNSPECIFIED Comment: 10/12/18: - Ongoing dyspnea with exertion and dry cough. Obstructive vs. Restrictive lung disease? - Recent Echo showing preserved EF and no diastolic dysfunction. - Inadequate response with bronchodilator, ICS therapy and systemic steroids. Currently on Breo, Levalbuterol and Prednisone 40mg QD. - Titrate oxygen to keep sats> 92%. - Gaufenisin 600mg BID and Tesalon perles Q8H PRN for cough. - CXR noting pulmonary fibrosis but pt has no hx of environmental or medication exposures. - Ordered Chest CT w/contrast and Pulomonary consulted from the ED. - Needs PFT as and outpatient. (2) Lymphedema of both lower extremities Current Visit: No Status: Acute Base Code: I89.0 - LYMPHEDEMA, NOT ELSEWHERE CLASSIFIED Comment: 10/11/18: - Bilateral lower ext lymphedema with skin changes. - On Bumex 2mg BID daily and leg elevation. (3) Depression Current Visit: Yes Status: Acute Base Code: F32.9 - MAJOR DEPRESSIVE DISORD ER, SINGLE EPISODE, UNSPECIFIED Comment: 10/12/18: - Continue Wellbutrin 300mg daily. (4) Hypothyroid Current Visit: Yes Status: Acute Base Code: E03.9 - HYPOTHYROIDISM, UNSPEC IFIED Comment: 10/12/18: - Continue Levothyroxine 150mcg daily. (5) Hx of deep venous thrombosis Current Visit: Yes Status: Acute Base Code: Z86.718 - PERSONAL HISTORY OF OTHER VENOUS THROMBOSIS AND EMBOLISM Comment: 10/12/18: - On Xarelto 15mg at home. (6) Smoking history Current Visit: Yes Status: Acute Base Code: Z87.891 - PERSONAL HISTORY OF NICOTINE DEPENDENCE Comment: 10/12/18: - 35+ pk/yr intermittent smoking. Patient says she quit since last admission. (7) DVT prophylaxis Current Visit: No Status: Acute Base Code: Z29.9 - ENCOUNTER FOR PROPHYLACTIC MEASURES, UNSPECIFIED Comment: 10/12/18: -High risk due to age, hospitalization, and illness -Continue home dose of Xarelto 15mg daily (8) Full code status Current Visit: No Status: Acute Base Code: Z78.9 - OTHER SPECIFIED HEALTH STATUS Comment: 10/12/18: -Full code this admission
[2018-10-12] MEDS: NYSTATIN 15 GM TUBE TOP SCH ×2 (21:05→23:10)
--- NOTE | 2018-10-13 05:10 | CT SCAN REPORT ---
EXAM: CT OF THE CHEST WITH CONTRAST HISTORY: DYSPNEA. RECENT PNEUMONIA. COUGH. TECHNIQUE: Routine contrast enhanced helical CT examination of the chest was performed with 100 ml of Omnipaque 300 utilized. Comparison: Two view chest radiographic examination dated 10/11/18. Single view of the chest dated 09/23/18. FINDINGS: The heart is at the upper limits of normal in size. Minor calcification of the aortic valve. Mild to moderate calcification of the mitral annulus. There is mild atherosclerosis of the thoracic aorta and arch branch vessels without aneurysmal dilatation nor dissection. Minor ectasia of the distal aortic arch measuring 3.5 cm possibly relating to a ductus arteriosus remnant. Proximal to this the aortic arch measures 3.0 cm. There are several nonenlarged and mildly enlarged mediastinal lymph nodes. The largest is located in the low right paratracheal region measuring 1.4 cm in short axis diameter. At the level of the aortic arch there is a right paratracheal lymph node measuring 10.4 mm in short axis diameter and there is a subcarinal lymph node measuring 11 mm in short axis diameter. Lymphoid tissue in the right hilum is near the upper limits of normal. It appears normal on the left. There are mixed areas of reticular and ground glass opacities scattered in each lung. These appear most pronounced in the right suprahilar region and left lung base. These likely relate to a combination of chronic interstitial change and mild active pneumonitis. No gross lung consolidation. There is likely dependent atelectasis in each lung base. There is a somewhat mosaic pattern scattered in each lung. This can be seen with obstructive small airways disease. No pleural or pericardial effusion. There is moderate atherosclerotic plaque within the left anterior descending artery. The adrenal glands are not completely imaged. The imaged portions are not enlarged. No lytic or blastic bone lesion. IMPRESSION: 1. BORDERLINE CARDIOMEGALY. MODERATE ATHEROSCLEROTIC PLAQUE INVOLVING THE PROXIMAL ASPECT OF THE LEFT ANTERIOR DESCENDING ARTERY. 2. MINOR ECTASIA OF THE DISTAL AORTIC ARCH, DISCUSSED ABOVE. 3. MIXED RETICULAR AND GROUND GLASS OPACITIES SCATTERED IN EACH LUNG MOST PRONOUNCED IN THE RIGHT SUPRAHILAR AND LEFT BASILAR REGIONS. THESE LIKELY RELATE TO A COMBINATION OF CHRONIC INTERSTITIAL CHANGE AND ACTIVE PNEUMONITIS. FURTHER EVALUATION WITH HIGH RESOLUTION CT CHEST EXAMINATION MAY BE OF BENEFIT FOR FURTHER CHARACTERIZATION. 4. APPARENT MILD MOSAIC PATTERN SCATTERED IN EACH LUNG MOST PRONOUNCED IN THE BASES. THIS CAN BE SEEN WITH OBSTRUCTIVE SMALL AIRWAYS DISEASE. 5. MILD MEDIASTINAL ADENOPATHY. THESE ARE NONSPECIFIC, BUT LIKELY REACTIVE/INFLAMMATORY RATHER THAN NEOPLASTIC. JOB NUMBER: [id number] [facility]
[2018-10-13] MEDS: LEVOTHYROXINE SODIUM 150 MCG TABLET PO SCH (06:06)
[2018-10-13] MEDS ORDERED: BREO (FLUTICASONE/VILANTEROL) 200MCG/25MCG INHALER INH SCH (07:20)
[2018-10-13] MEDS: LEVALBUTEROL HCL 1.25 MG/3 ML INH SCH ×3 (07:46→13:23)
[2018-10-13] MEDS: PREDNISONE 20 MG TAB PO SCH (08:27)
[2018-10-13] MEDS: GUAIFENESIN 600 MG TABCR PO SCH (09:59)
[2018-10-13] MEDS: BUPROPION HCL 150 MG TAB.SR.12H PO SCH (09:59)
[2018-10-13] MEDS: NYSTATIN 15 GM TUBE TOP SCH (10:00)
[2018-10-13] MEDS: BUMETANIDE 1 MG TABLET PO SCH (10:00)
[2018-10-13] MEDS: RIVAROXABAN 15 MG TABLET PO SCH (10:00)
[2018-10-13] MEDS: CARVEDILOL 12.5 MG TABLET PO SCH (10:00)
--- NOTE | 2018-10-13 12:24 | Discharge Summary ---
Providers Discharge Summary Date: 10/13/18 Date of admission: 10/11/18 15:44 Expected Date of Discharge: 10/13/18 Attending physician: LEONOR CASTANO Primary care physician: RAYARY ARAYA D.O. Consults: Consult Orders 10/11/18 15:49 Consult NOW Consulting Provider: DINH KINGSTON Physician Instructions: Please eval inpatient 10/12 Reason For Exam: Pulm fibrosis Physical Exam - Vital Signs Vital Signs: Vital Signs - Last 24 Hrs Temp Pulse Pulse Resp BP Pulse Ox 10/13/18 11:30 64 18 97 10/13/18 09:00 20 10/13/18 07:46 60 20 99 10/13/18 07:30 97.7 F 54 L 22 143/80 96 10/13/18 06:00 97.7 F 59 L 20 130/80 94 L 10/12/18 23:56 97.7 F 61 22 154/94 93 L 10/12/18 22:30 81 22 96 10/12/18 20:00 97.6 F 72 20 144/93 93 L 10/12/18 18:56 75 22 96 10/12/18 18:53 80 22 95 10/12/18 15:27 68 18 97 - General General Appearance: Alert, Oriented x3, Cooperative, No acute distress Limitations: No limitations - Head Head exam: Atraumatic, Normocephalic, Normal inspection - Eye Eye exam: Normal appearance, PERRL - ENT Throat exam: Normal inspection. negative: Tonsillar erythema, Tonsillar exudate - Neck Neck exam: Normal inspection, Full ROM. negative: Tenderness - Respiratory Respiratory exam: Decreased breath sounds. negative: Normal lung sounds bilaterally, Accessory muscle use, Prolonged expiratory, Respiratory distress, Stridor, Wheezes - Cardiovascular Cardiovascular Exam: Regular rate, Normal rhythm, Normal heart sounds Peripheral Pulses: 3+: Radial (R), Radial (L) - GI/Abdominal GI/Abdominal exam: Soft, Normal bowel sounds. negative: Tenderness - Extremities Extremities exam: Pedal edema (chronic and severe edema bilaterally, lymphedema). negative: Normal inspection - Back Back exam: Reports: Other (surgical scar, lower lumbar/sacral). Denies: CVA tenderness (R), CVA tenderness (L) - Neurological Neurological exam: Alert, Oriented X3. negative: Motor sensory deficit - Psychiatric Psychiatric exam: Normal affect, Normal mood. negative: Anxious - Skin Skin exam: Erythema (bilateral lower ext-chronic) Hospitalization - Hospitalization Admission Diagnosis: 1. Acute COPD Exacerbation. - Problem List/Discharge Diagnosis (1) Dyspnea Current Visit: No Status: Acute Base Code: R06.00 - DYSPNEA, UNSPECIFIED Comment: 10/13/18 -Pulm consult yesterday, no notes but report to outgoing hospitalist reported Pulmonary Fibrosis -pt to f/u with Pulm 10/16/18 3:30pm, has bronchoscopy, PFT, and labs ordered from Dr Matta -pt to f.u PCP 10/16/18 10AM -home health to call her in 48hr for set up, has home O2 -CTA disc burned for pulm 10/12/18: - Ongoing dyspnea with exertion and dry cough. Obstructive vs. Restrictive lung disease? - Recent Echo showing preserved EF and no diastolic dysfunction. - Inadequate response with bronchodilator, ICS therapy and systemic steroids. Currently on Breo, Levalbuterol and Prednisone 40mg QD. - Titrate oxygen to keep sats> 92%. - Gaufenisin 600mg BID and Tesalon perles Q8H PRN for cough. - CXR noting pulmonary fibrosis but pt has no hx of environmental or medication exposures. - Ordered Chest CT w/contrast and Pulomonary consulted from the ED. - Needs PFT as and outpatient. (2) Pulmonary fibrosis Current Visit: Yes Status: Acute Base Code: J84.10 - PULMONARY FIBROSIS, UNSPECIFIED Comment: 10/13/18 -pt to f/u with pulm 10/26/18 (3) Depression Current Visit: Yes Status: Acute Base Code: F32.9 - MAJOR DEPRESSIVE DISORDER, SINGLE EPISODE, UNSPECIFIED Comment: 10/13/18: - Continue Wellbutrin 300mg daily. (4) Hx of deep venous thrombosis Current Visit: Yes Status: Acute Base Code: Z86.718 - PERSONAL HISTORY OF OTHER VENOUS THROMBOSIS AND EMBOLISM Comment: 10/13/18: - On Xarelto 15mg at home. (5) Hypothyroid Current Visit: Yes Status: Acute Base Code: E03.9 - HYPOTHYROIDISM, UNSPECIFIED Comment: 10/13/18: - Continue Levothyroxine 150mcg daily. (6) Smoking history Current Visit: Yes Status: Acute Base Code: Z87.891 - PERSONAL HISTORY OF NICOTINE DEPENDENCE Comment: 10/13/18: - 35+ pk/yr intermittent smoking. Patient says she quit since last admission. (7) Lymphedema of both lower extremities Current Visit: No Status: Acute Base Code: I89.0 - LYMPHEDEMA, NOT ELSEWHERE CLASSIFIED Comment: 10/13/18: - Bilateral lower ext lymphedema with skin changes. - On Bumex 2mg BID daily and leg elevation. -continue at home leg tx ("leg pumps") (8) DVT prophylaxis Current Visit: No Status: Acute Base Code: Z29.9 - ENCOUNTER FOR PROPHYLACTIC MEASURES, UNSPECIFIED Comment: 10/13/18: -High risk due to age, hospitalization, and illness -Continue home dose of Xarelto 15mg daily (9) Full code status Current Visit: No Status: Acute Base Code: Z78.9 - OTHER SPECIFIED HEALTH STATUS Comment: 10/13/18: -Full code this admission - Hospitalization Course Disposition: Home Health Service Hospital Course: Ms. Mg is a 68 y/o female with 2-3 month history of what was initially thought to be bronchitis and later was diagnosed as pneumonia in late August. The patient was admitted to [facility] and treated for community acquired pneumonia. On that admission she also had cardiac workup with 2D echo showing preserved cardiac ejection fraction. The patient says that she was on Advair but says that she has not been using them. She has been on 3 liters oxygen since her last admission but says that her shortness of breath is not resolving. She has an over 35 year history of intermittent smoking approximately 1/2 pack daily and says that she recently quit. She reports having a pulmonary function test some years ago but cannot recall the results and denies history of fibrotic lung disease. The patient is admitted to the medical floor for respiratory distress with hypoxia. Past medical history includes: DVTs/PE, Lymphedema of bilateral lower extremities, depression and hypothyroidism. PCP: Dr. Rayray Martínez Procedures: Imaging and X-Rays 10/11/18 12:54 CHEST 2 VIEWS [RAD] Stat 10/12/18 11:27 CHEST W CONTRAST [CT] Stat Abnormal Labs: Abnormal Lab Results 10/11/18 10/11/18 10/11/18 Range/Units 13:28 13:28 13:28 MCV 99.3 H (81-97) fl MCHC 31.7 L (32-36) g/dl Random Glucose 142 H (74-109) mg/dL C-Reactive Protein 9.60 H (<0.5) mg/dL NT-Pro-B Natriuret Pep 399.40 H (<125) pg/mL Albumin 3.5 L (4.0-5.0) g/dL Albumin/Globulin Ratio 1.0 L (1.1-1.8) Condition at Discharge: (2) Stable Discharge Medications - Discharge Medications Prescriptions: Prednisone [Prednisone 20Mg] 40 mg PO DAILYWM 3 Days #6 tab Benzonatate [Tessalon Perles] 100 mg PO TID PRN 10 Days #30 capsule PRN Reason: Cough Levalbuterol HCl (1.25MG/3Ml) [Xopenex (1.25MG/3Ml)] 1.25 mg INH RESP.Q4H.WA PRN #60 nebu PRN Reason: Difficulty In Breathing Home Medications: Ambulatory Orders Bumetanide 2 mg PO BID 09/23/18 [Last Taken 3 Days Ago ~10/08/18] Bupropion HCl [Wellbutrin Xl] 300 mg PO DAILY 09/23/18 [Last Taken 1 Day Ago ~0 10/10/18] Carvedilol 12.5 mg PO BID 09/23/18 [Last Taken 1 Day Ago ~10/10/18] Levothyroxine Sodium [Synthroid] 150 mcg PO DAILY 09/23/18 [Last Taken 1 Day Ago ~10/10/18] Rivaroxaban [Xarelto] 15 mg PO DAILY 09/23/18 [Last Taken 1 Day Ago ~10/10/18] Fluticasone/Vilanterol 200/25 [Breo Ellipta 200-25 Mcg INH] 1 puff INH DAILY #1 inhaler 09/24/18 [Last Taken 1 Day Ago ~10/10/18] Guaifenesin [Mucinex] 600 mg PO BID 10 Days #20 tabcr 09/24/18 [Last Taken 10/11/18] Nystatin 5 gm TOP BID cream 09/24/18 [Last Taken 3 Days Ago ~10/08/18] Acetaminophen [Tylenol 325Mg] 650 mg PO Q6H PRN tablet 10/13/18 [Last Taken Unknown] Benzonatate [Tessalon Perles] 100 mg PO TID PRN 10 Days #30 capsule 10/13/18 [Last Taken Unknown] Levalbuterol HCl (1.25MG/3Ml) [Xopenex (1.25MG/3Ml)] 1.25 mg INH RESP.Q4H.WA PRN #60 nebu 10/13/18 [Last Taken Unknown] Prednisone [Prednisone 20Mg] 40 mg PO DAILYWM 3 Days #6 tab 10/13/18 [Last Taken Unknown] Discharge Plan - Discharge Instructions Additional Instructions: [facility] will contact you to start services at home. They can be reached at [phone] Kingston's office will call you at home to set up your outpatient procedures as ordered. Sudha can be reached at Dr. Kingston's office if you have any questions, option 2. -Appointment with Dr. Yarbrough on October 26 at 3:30 at [facility] ([phone]) Quality Measures - Quality Measures Quality Measures: Advance Directives, Documentation of Current Medications in Medical Record, Elder Maltreatment Screen and Follow-Up Plan, Screening for High Blood Pressure and F/U Documented - Current Medications Quality Measure: Measure #130: Documentation of Current Medications Documentation of Current Medications: <Current Medications Documented/Reviewed> [G8427] - Blood Pressure Screening Quality Measure: Screening for High Blood Pressure and Follow-Up Documented Does Patient Have Any of the Following: Active Dx of HTN Blood Pressure Classification: Hypertensive Reading Systolic Measurement: 146 Diastolic Measurement: 100 Screening for High Blood Pressure: Patient Exclusion, Hx of HTN [G9744] - Advance Directives Quality Measure: Measure #47: Care Plan Advance Directives Established: Yes Advance Directives Information Provided To Patient: No Advance Directives on File: No Living Will: Yes Power of Locomotive Pipe Fitter: Yes Power of Locomotive Pipe Fitter Name: garcía german Advance Care Planning: <Care Plan/Decision Maker Documented; Discussed & Documented> [1123F] - Elder Abuse Suspicion Index Screening: Elder Abuse Suspicion Index Screening Rely on people for bathing, dressing, shopping, banking, etc: No Prevented from getting food, clothes, medication, etc: No Made to feel shamed or threatened by someone: No Forced to sign papers or use money against will: No Feel afraid, touched in ways not wanted or hurt physically: No Poor eye contact, withdrawn, malnourished, cuts or bruises: No Screening Result: Negative result EASI Reference Information: Maria G WHITTAKER, Kylah Daugherty, Sukhdev Salvador, Kathie Cotter.Development and validation of a tool to assist physicians identification of elder abuse: The Elder Abuse Suspicion Index (EASI ). Journal of Elder Abuse and Neglect, 2008; 20 (3): 276-300. - Elder Maltreatment Screen Quality Measures: Elder Maltreatment Screen and Follow-Up Plan Elder Maltreatment Screen: <Negative, No Follow-Up Plan Required> [G8734]
--- NOTE | 2018-10-13 15:24 | RADIOLOGY REPORT ---
STUDY: Two-view chest. TIME: 1311 hours. CLINICAL HISTORY: Cough and difficulty breathing. Recent pneumonia. TECHNIQUE: PA and lateral upright views of the chest were obtained. COMPARISON: 09/23/2018 and 04/04/2008. FINDINGS: The heart, mediastinum, and pulmonary vasculature are normal. Reticulonodular infiltrates are again noted throughout both lungs and appear similar to the 2008 examination. This likely represents chronic interstitial lung disease/pulmonary fibrosis. There are no visible acute superimposed infiltrates or effusions. There is no pneumothorax. Degenerative changes and mild dextroconvex scoliosis are present within the thoracic spine. IMPRESSION: 1. Stable chronic-appearing interstitial changes/fibrosis within both lungs. 2. No acute intrathoracic pathology identified. MTDD
== END 2018-10-13 14:05 | disposition home health service (06) ==
LOC: ER 12:12 → MEDSURG 15:44
PROVIDERS: ADMIT Internal Medicine; ATTEND Internal Medicine
DX: R06.00 Dyspnea, unspecified (principal); J84.10 Pulmonary fibrosis, unspecified; I89.0 Lymphedema, not elsewhere classified; F32.9 Major depressive disorder, single episode, unspecified; E03.9 Hypothyroidism, unspecified; Z86.718 Personal history of other venous thrombosis and embolism; M19.90 Unspecified osteoarthritis, unspecified site; G47.33 Obstructive sleep apnea (adult) (pediatric); Z99.81 Dependence on supplemental oxygen; F17.210 Nicotine dependence, cigarettes, uncomplicated; Z86.14 Personal history of Methicillin resistant Staphylococcus aureus infection; Z86.711 Personal history of pulmonary embolism
CPT/HCPCS: 85025; 85730; 85610; 86140; 80053; 84145; 83880; 71046; 71260; 94640 ×4; 94761; 94760; G0378 ×3; Q9967; J7512 ×2; 96374; 96375; 99223; 99239; 99285; J2930